=== PATIENT | male | born 1935 | race Caucasian/White ===

== ENCOUNTER → 2016-08-01 | Outpatient (CLI) | payer OTHER ==
--- NOTE | 2016-08-01 15:41 | DX ---
Chest, PA and Lateral History: Cough times weeks, D59.1 COMPARISON: February 21, 2015, September 10, 2011 Findings: Mild bronchial wall thickening is consistent with chronic or recurrent airways disease. Souleymane gs are clear, without infiltrate or consolidation. Heart size is normal. There is no adenopathy or ma ss lesion. There is no pleural effusion or pneumothorax. A few thoracic compression abnormalities are stable. No new compressions have developed. There is a chronic dextroscoliosis at the thoracolumbar junction. There are stable surgical clips at the esophagogastric junction. Impression: Consistent with airways disease
== END ==
LOC: FIMAGING 14:24
PROVIDERS: ATTEND Internal Medicine Hematology & Oncology
DX: J44.9 Chronic obstructive pulmonary disease, unspecified (principal); D59.1 Other autoimmune hemolytic anemias

== ENCOUNTER 2016-09-27 12:54 | Emergency (ER) | payer OTHER ==
--- NOTE | 2016-09-27 13:14 | EDPHY ---
H & P Stated Complaint: Fall, denies LOC, skin tear left thumb, abrasion on scalp Time Seen by Provider: 09/27/16 13:13 - Personal History Current Tetanus/Diphtheria Vaccine: Yes Current Tetanus Diphtheria and Acellular Pertussis (TDAP): Yes Tetanus Vaccine Date: 2011 - Medical/Surgical History Hx Asthma: No Hx Chronic Respiratory Disease: No Hx Diabetes: No Hx Cardiac Disease: No Hx Renal Disease: No Hx Cirrhosis: No Hx Alcoholism: No Hx HIV/AIDS: No Hx Splenectomy or Spleen Trauma: No Other PMH: hemolytic anemia, ulcer perforation repair 2005, hernia repair x 3, left rotator cuff repair 2010, PE 2006 - Social History Smoking Status: Former smoker Constitutional: Initial Vital Signs Temperature (C) 37.2 C 09/27/16 12:58 Heart Rate 65 09/27/16 12:58 Respiratory Rate 14 09/27/16 12:58 O2 Sat (%) 96 09/27/16 12:58 O2 Delivery Mode Room Air Allergies/Adverse Reactions: Penicillins Allergy (Intermediate, Verified 01/01/10 12:45) Hives NSAIDS (Non-Steroidal Anti-Inflamma [Nsaids] Allergy (Mild, Verified 01/02/10 14 :12) Other-Enter Comments Home Medications: Medication Instructions Recorded Folic Acid [Folic Acid 1 MG (*)] 1 mg PO DAILY 02/21/15 Tamsulosin HCl [Flomax 0.4 MG (*)] 0.4 mg PO DAILY@0830 02/21/15 predniSONE 60 mg PO DAILY #30 tablet 02/25/15 Medical Decision Making ED Course/Re-evaluation: CHIEF COMPLAINT: Skin tear HISTORY OF PRESENT ILLNESS: The patient is a 80 y/o male arriving at the referral of urgent care for evaluation of a skin tear secondary to a fall. He says he over dressed for the heat while hiking this morning and felt more fatigued than normal. He leaned on a slope to rest and "tipped over," scratching his scalp and left hand on gravel. He denies loss of consciousness, neck or back pain, weakness, paresthesias, or other injuries. He denies preceding dizziness, chest pain, or dyspnea. He is not on anticoagulants. REVIEW OF SYSTEMS: A 10 point review of systems was performed and is negative with the exception of the elements mentioned in the history of present illness. PHYSICAL EXAM: HR, BP, O2 Sat, RR. Temp noted General Appearance: Alert, well hydrated, appropriate, and non-toxic appearing. Head: Superficial abrasions to left side of scalp. Eyes: Pupils equal, round, reactive to light and accommodation, EOMI, no trauma , no injection. Ears: Clear bilaterally, no perforation, normal landmarks Nose: Atraumatic, no rhinorrhea, clear. Throat: There is no erythema or exudates, no lesions, normal tonsils, mucus membranes moist. Neck: Supple, nontender, no lymphadenopathy. Respiratory: No retractions, no distress, no wheezes, and no accessory muscle use. Lungs are clear to auscultation bilaterally. Cardiovascular: Regular rate and rhythm, no murmurs, rubs, or gallops. Bilateral radial pulses intact. Good capillary refill all extremities. Gastrointestinal: Abdomen is soft, nontender, non-distended, no masses, no rebound, no guarding, no peritoneal signs. Musculoskeletal: Mild pain over left thumb. Otherwise normal active ROM of all extremities, atraumatic. Neurological: Alert, appropriate, and interactive. The patient has normal DTRs and non-focal cranial nerves, motor, sensory, and cerebellar exam. Skin: No rashes, good turgor, no nodules on palpation. Left hand: 2"x1" skin tear avulsion over left 1st proximal phalanx with minimal tenderness. Past medical history: Hemolytic anemia on chronic prednisone, peptic ulcer disease, provoked PE, BPH Past surgical history: Bilateral inguinal hernia repair, right rotator cuff surgery Family history: noncontributory Social history: . PCP: Dr. Maldonado Prior medical records reviewed including admission 02/21/15 for chest pain. DIAGNOSTICS/PROCEDURES/CRITICAL CARE TIME: Study: Left wrist x-ray Indication: Pain, trauma Results: Left wrist x-ray was obtained. The results of the study are no fracture The study was read by the radiologist, Dr. Caballero. I viewed the images myself on the PACS system. Procedure: Laceration repair. Verbal consent was obtained from the patient. The patient has a 2"x1" skin avulsion over the left 1st proximal phalanx that did not require anesthesia. The wound was cleaned with standard ED protocol. There were no deep structures involved. No tendon injury was identified. The wound was repaired in single layer technique with Dermabond. The wound repair was simple. The procedure was performed by myself, Dr. Howard. DIFFERENTIAL DIAGNOSIS: The differential diagnosis for the patient's trauma included but was not limited to hand fracture, skin tear, abrasion, contusion, sprain, and strain. MEDICAL DECISION MAKING: This is a 80 y/o male presenting with a skin tear over his left thumb secondary to a fall while hiking. He has associated minor abrasions to his scalp, but denies pain or neurologic symptoms. He is not on anticoagulants. Plan for imaging to rule out fracture on thumb or wrist and wound care. X-ray is negative. Skin tear has been cleaned and is amenable to Dermabond repair of the avulsion. He will be discharged with standard wound care instructions and recommendation to follow up with his PCP if needed. Return precautions given. Departure - Departure Disposition: Home, Routine, Self-Care Clinical Impression: Scalp abrasion Qualifiers: Encounter type: initial encounter Qualified Code(s): S00.01XA - Abrasion of scalp, initial encounter Skin tear of left hand without complication Qualifiers: Encounter type: initial encounter Qualified Code(s): S61.412A - Laceration without foreign body of left hand, initial encounter Condition: Good Instructions: Abrasion (ED), Acute Wounds (ED) Additional Instructions: 1. Keep site clean and dry. Okay to clean gently with soap and water 24 hours after application. Do not scrub the glue; it will fall off on its own after 5-7 days. 2. Watch for signs of infection including dramatic increase in redness or numbness, pus discharge, fever, or other worsening of condition. Referrals: Robert Maldonado MD [Primary Care Provider] - As per Instructions Report Scribed for: Cuong Howard Report Scribed by: Rebecca Powell Date of Report: 09/27/16 Time of Report: 13:32
[2016-09-27] MEDS ORDERED: SKIN ADHESIVE (DERMABOND) 1 EACH TP ONE (14:26)
[2016-09-27 14:52] VITALS: BP 110/64; PULSE 60; RESP 18; TEMP 98.8; O2SAT 95
== END 2016-09-27 14:50 | disposition home or self-care (01) ==
PROC: 0HQGXZZ Repair Left Hand Skin, External Approach (ICD-10-PCS; principal; 2016-09-27)
DX: S61.012A Laceration without foreign body of left thumb without damage to nail, initial encounter (principal); S00.01XA Abrasion of scalp, initial encounter; Z87.891 Personal history of nicotine dependence; W01.198A Fall on same level from slipping, tripping and stumbling with subsequent striking against other object, initial encounter; Y92.89 Other specified places as the place of occurrence of the external cause; Y93.89 Activity, other specified

== ENCOUNTER → 2017-02-04 | Outpatient (CLI) | payer OTHER | LOC: FIMAGING 13:24 | PROVIDERS: ATTEND Internal Medicine Hematology & Oncology | DX: M81.0 Age-related osteoporosis without current pathological fracture (principal) ==

== ENCOUNTER → 2018-01-27 | Outpatient (CLI) | payer OTHER ==
[~2018-01-27] MED LIST: GADOBUTROL 10 ML VIAL IVP ONE
== END ==
LOC: FIMAGING 06:34
PROVIDERS: ATTEND Psychiatry & Neurology Neurology
DX: I65.23 Occlusion and stenosis of bilateral carotid arteries (principal); I65.02 Occlusion and stenosis of left vertebral artery; G31.9 Degenerative disease of nervous system, unspecified
CPT/HCPCS: 70544; 70549; 70553; A9585

== ENCOUNTER 2019-01-10 20:52 | Emergency (ER) | payer OTHER | END 2019-01-10 21:47 | disposition home or self-care (01) ==